=== PATIENT | male | born 1945 | race Caucasian/White ===

== ENCOUNTER 2017-07-14 12:44 | Emergency (ER) | payer MEDICARE, OTHER ==
[~2017-07-14] VITALS: Ht 175.3 cm; Wt 74.5 kg
[~2017-07-14 12:44] MED LIST: EZET10 PO; LORT5TAB PO; LOSA25TA31 PO; NEXI40CA PO
[2017-07-14 12:48] VITALS: BP 136/62; PULSE 83; RESP 16; TEMP 97.8; O2SAT 98
[2017-07-14] MEDS ORDERED: EZET10 PO (12:56)
[2017-07-14] MEDS ORDERED: LOSA25TA PO (12:56)
[2017-07-14] MEDS ORDERED: ACYC800T PO (14:42)
[2017-07-14] MEDS ORDERED: BACTOIN EACH NARE (14:42)
--- NOTE | 2017-07-14 14:43 | PD ---
HPI Chief Complaint: Skin Problem Time Seen by Provider: 14:25 Travel History International Travel<30 days: No Contact w/Intl Traveler<30days: No Traveled to known affect area: No History of Present Illness HPI This is a 72-year-old male here for evaluation of lesions to his left upper lip present for 6 days. He reports lesions originated as clear fluid-filled vesicles that were painful and "tingling". The vesicles have sense opened and he now has a scab. The pain has improved since the vesicles originated. He was told this may be shingles prompting his visit to the ER. He denies fever or chills. No eye pain or visual changes. Rash is localized to the left upper lip exclusively. Severity is moderate. No aggravating or alleviating factors. PFSH Past Medical History Arthritis: Yes Autoimmune Disease: No Heart Rhythm Problems: Yes (hx of heart racing) Cancer: No Cardiovascular Problems: Yes (htn on meds) High Cholesterol: Yes Diminished Hearing: No Endocrine: No Gastrointestinal Disorders: Yes GERD: Yes Genitourinary: No Hypertension: Yes Musculoskeletal: Yes Neurologic: Yes Psychiatric: No Respiratory: No Tetanus Vaccination: Unknown Influenza Vaccination: Yes Past Surgical History Abdominal Surgery: Yes (APPY, PARTHA) Appendectomy: Yes Cholecystectomy: Yes Oral Surgery: Yes (TONSILLECTOMY) Pacemaker: No Tonsillectomy: Yes Other Surgery: Yes (cervical with plates) Social History Alcohol Use: No Tobacco Use: No Substance Use: No Allergies-Medications (Allergen,Severity, Reaction): Coded Allergies: No Known Allergies (Verified Adverse Reaction, Unknown, 07/14/17) Reported Meds & Prescriptions Reported Meds & Active Scripts Active Reported Zetia (Ezetimibe) 10 Mg Tab 10 Mg PO DAILY Losartan (Losartan Potassium) 25 Mg Tab 25 Mg PO DAILY Review of Systems Except as stated in HPI: all other systems reviewed are Neg General / Constitutional: No: Fever Physical Exam Narrative GENERAL: Alert and well-appearing 72-year-old male SKIN: Warm and dry. Multiple scabbed lesions to the left upper lip. The lesions do not cross the midline. There is mild swelling of the left upper lip. No induration or fluctuance. HEAD: Normocephalic. EYES: Pupils equal, round, reactive. EOMs intact. No injection or drainage. NECK: Supple, trachea midline. No lymphadenopathy. CARDIOVASCULAR: Regular rate and rhythm without murmurs, gallops, or rubs. RESPIRATORY: Breath sounds equal bilaterally. No accessory muscle use. Data Data Last Documented VS Vital Signs Date Time Temp Pulse Resp B/P (MAP) Pulse Ox O2 Delivery O2 Flow Rate FiO2 07/14/17 12:54 16 07/14/17 12:48 97.8 83 136/62 (86) 98 MDM Medical Decision Making Medical Screen Exam Complete: Yes Emergency Medical Condition: Yes Differential Diagnosis Herpes zoster, impetigo, herpes labialis Narrative Course 72-year-old male here with multiple scabbed lesions to the left upper lip. This appears to be shingles. Possible mild secondary infection. Patient will be treated with antivirals and bactroban ointment. Diagnosis Primary Impression: Herpes zoster Qualified Codes: B02.9 - Zoster without complications Referrals: Primary Care Physician Additional Instructions: Medications as directed. Follow-up with her primary doctor. Return if he developed new or worsening symptoms. Scripts Mupirocin Nasal Oint (Bactroban Nasal Oint) 2% Oint 1 APPLIC EACH NARE BID for Mgmt Bacterial Infection, #1 TUBE 0 Refills For 5 days. Prov: Connie Cisneros 07/14/17 Acyclovir (Acyclovir) 800 Mg Tab 800 MG PO 5 TIMES A DAY for Mgmt Viral Infection for 7 Days, TAB 0 Refills Prov: Connie Cisneros 07/14/17 Disposition: 01 DISCHARGE HOME Condition: Stable Connie Cisneros Jul 14, 2017 14:42
== END 2017-07-14 14:48 | disposition home or self-care (01) ==
LOC: PHED 12:44 → PHEFT 14:48
DX: B02.9 Zoster without complications (principal); I10 Essential (primary) hypertension
CPT/HCPCS: 99283